=== PATIENT | female | born 1950 | race Two or more races ===

== ENCOUNTER 2023-06-04 03:36 | Inpatient (IN) | payer OTHER, MEDICAID ==
[~2023-06-04] VITALS: Ht 165.1 cm; Wt 92.1 kg
[2023-06-04] MEDS ORDERED: cloNIDine HCL 0.1 MG TAB PO ONE (06:45)
[2023-06-04 07:40] LABS: Chloride 102 mmol/L (98-107); Sodium 142 mmol/L (136-145)
[2023-06-04 07:41] LABS: Anion Gap 10 (5-15); Calcium 8.9 mg/dL (8.5-10.1); Carbon Dioxide 30 mmol/L (20-30)
[2023-06-04 07:46] LABS: Blood Urea Nitrogen 25 mg/dL (9-23); Glucose 148 mg/dL (74-106)
[2023-06-04 07:50] LABS: Basophils # (auto) 0 10 ^3/uL (0-0.2); Basophils % (auto) 0.3 % (0.0-2.0); Eosinophils # (auto) 0 10 ^3/uL (0-0.8); Hematocrit 41.7 % (36.0-46.0); Lymphocytes # (auto) 1.8 10 ^3/uL (0.4-5.4); Lymphocytes % (auto) 18.5 % (10.0-50.0); Mean Corpuscular Hemoglobin 31.1 pg (28.0-32.0); Mean Corpuscular Hgb Conc. 33.7 g/dL (32.0-36.0); Mean Corpuscular Volume 92.2 fL (80.0-100.0); Monocytes # (auto) 0.5 10 ^3/uL (0-1.3); Monocytes % (auto) 5.3 % (0.0-12.0); Neutrophils # (auto) 7.5 10 ^3/uL (1.6-8.6); Neutrophils % (auto) 75.9 % (37.0-80.0); Nucleated Red Blood Cells % 0.1 %; Red Blood Cells 4.52 10^6/uL (4.0-5.20); Red Cell Distribution Width 14.5 % (11.8-14.3); White Blood Cell 9.9 10^3/uL (4.4-10.8)
[2023-06-04] MEDS ORDERED: ENOXAPARIN SOD 100 MG/1 ML SYRINGE SC ONE (08:00)
[2023-06-04] MEDS ORDERED: NITROGLYCERIN 0.4 MG SL TAB SL ONE (08:00)
[2023-06-04] MEDS ORDERED: ASPirin 325 MG TAB PO ONE (08:00)
[2023-06-04 08:15] VITALS: RESP 17; O2SAT 95
[2023-06-04] MEDS ORDERED: SITA100T7 PO (08:57)
[2023-06-04] MEDS ORDERED: CHOL1CAP21 PO (08:57)
[2023-06-04] MEDS ORDERED: APIX5TAB PO (08:57)
[2023-06-04] MEDS ORDERED: TRAZ-228 PO (08:57)
[2023-06-04] MEDS ORDERED: OMEP1CAP70 PO (08:57)
[2023-06-04] MEDS ORDERED: ATOR40TA52 PO (08:57)
[2023-06-04] MEDS ORDERED: AMLO1TAB22 PO (08:57)
[2023-06-04] MEDS ORDERED: CALC0.25 PO (08:57)
[2023-06-04] MEDS ORDERED: LOSA50TA46 PO (08:57)
[2023-06-04] MEDS ORDERED: PHEN1CAP60 PO (08:57)
[2023-06-04] MEDS ORDERED: FERR325T20 PO (08:57)
[2023-06-04] MEDS ORDERED: ASPI-325 PO (08:57)
[2023-06-04] MEDS ORDERED: SOTA80TA PO (08:57)
[2023-06-04] MEDS ORDERED: MORPHINE SULFATE INJ 2 MG/ml SYRG IV PRN (09:00)
[2023-06-04] MEDS ORDERED: NITROGLYCERIN 0.4 MG SL TAB SL PRN (09:00)
[2023-06-04] MEDS ORDERED: ACETAMINOPHEN 325 MG TAB PO PRN (09:00)
[2023-06-04] MEDS ORDERED: DEXTROSE (50%) 50ML SYRG IV PRN (09:00)
[2023-06-04] MEDS ORDERED: ERGOCALCIFEROL 50,000 UNIT(1.25MG) CAP PO SCH (09:15)
[2023-06-04 09:24] LABS: Triglycerides 168 mg/dL (< 150)
[2023-06-04 09:25] LABS: LDL Cholesterol 72 mg/dL (< 100)
[2023-06-04 09:26] LABS: Cholesterol 157 mg/dL (< 200); HDL Cholesterol 51 mg/dL (40-59)
[2023-06-04] MEDS: ASPirin 81 mg TAB PO SCH (09:59)
[2023-06-04] MEDS: ENOXAPARIN SOD 100 MG/1 ML SYRINGE SC SCH ×2 (10:00→22:41)
[2023-06-04] MEDS ORDERED: APIXABAN 5 MG TAB PO SCH (10:00)
[2023-06-04] MEDS ORDERED: OMEPRAZOLE 40MG/20ML ORAL SUSP PO SCH (10:00)
[2023-06-04] MEDS: LOSARTAN POTASSIUM 50 MG TAB PO SCH (10:11)
[2023-06-04] MEDS: CALCITRIOL 0.25 MCG CAP PO SCH (10:12)
[2023-06-04] MEDS: amLODIPine BESYLATE 5 MG TAB PO SCH (10:12)
[2023-06-04] MEDS: SOTALOL HCL 80 MG TAB PO SCH (10:14)
[2023-06-04] MEDS: PANTOPRAZOLE 40 MG TAB PO SCH (10:36)
[2023-06-04] MEDS: ACCU-CHEK COMFORT CURVE STRIP VI SCH ×3 (12:00→22:42)
[2023-06-04] MEDS: InsuLIN REG 1unit/0.01ml Soln (100units/ml) SC SCH ×3 (12:00→22:41)
[2023-06-04] MEDS: PHENYTOIN SODIUM 100 MG CAP PO SCH ×2 (14:18→22:37)
[2023-06-04 19:30] VITALS: PULSE 60; RESP 14; O2SAT 96
[2023-06-04] MEDS: ATORVASTATIN 20 MG TAB PO SCH (22:38)
[2023-06-04] MEDS: hydrALAZINE HCL 20 MG/ML VL IV PRN (22:39)
[2023-06-04 23:45] VITALS: BP 174/69; PULSE 80; RESP 19; TEMP 98.5; O2SAT 94
[2023-06-05] VITALS (9 sets, daily range): BP systolic 130–171; BP diastolic 56–83; PULSE 74–84; RESP 17–19; TEMP 97.6–98.8; O2SAT 92–97
[2023-06-05] MEDS ORDERED: POTA10TA51 PO (05:12)
[2023-06-05] MEDS ORDERED: BUSP10TA90 PO (05:13)
[2023-06-05] MEDS ORDERED: RIVA20TA PO (05:14)
[2023-06-05] MEDS ORDERED: FLUO-125 PO (05:18)
[2023-06-05] MEDS ORDERED: NIFE1TAB30 PO (05:20)
[2023-06-05] MEDS: PHENYTOIN SODIUM 100 MG CAP PO SCH ×3 (06:10→21:15)
[2023-06-05] MEDS: InsuLIN REG 1unit/0.01ml Soln (100units/ml) SC SCH ×4 (06:11→21:21)
[2023-06-05 06:18] LABS: Basophils # (auto) 0 10 ^3/uL (0-0.2); Basophils % (auto) 0.3 % (0.0-2.0); Eosinophils # (auto) 0 10 ^3/uL (0-0.8); Eosinophils % (auto) 0.1 % (0.0-7.0); Hematocrit 37.1 % (36.0-46.0); Hemoglobin 12.6 g/dL (12.2-16.2); Lymphocytes # (auto) 2.1 10 ^3/uL (0.4-5.4); Lymphocytes % (auto) 25.9 % (10.0-50.0); Mean Corpuscular Hemoglobin 31.5 pg (28.0-32.0); Mean Corpuscular Hgb Conc. 33.8 g/dL (32.0-36.0); Monocytes # (auto) 0.5 10 ^3/uL (0-1.3); Monocytes % (auto) 6.2 % (0.0-12.0); Neutrophils # (auto) 5.5 10 ^3/uL (1.6-8.6); Neutrophils % (auto) 67.5 % (37.0-80.0); Nucleated Red Blood Cells % 0.1 %; Red Blood Cells 3.99 10^6/uL (4.0-5.20); White Blood Cell 8.1 10^3/uL (4.4-10.8)
[2023-06-05] MEDS: ACCU-CHEK COMFORT CURVE STRIP VI SCH ×4 (06:23→21:15)
[2023-06-05 06:31] LABS: Alanine Aminotransferase 15 U/L (7-40); Albumin 4.1 g/dL (3.2-4.8); Alkaline Phosphatase 116 U/L (46-116); Anion Gap 10 (5-15); Aspartate Aminotransferase 21 U/L (13-40); BUN/Creatinine Ratio 23.3 (10.0-20.0); Bilirubin, Total 0.3 mg/dL (0.2-1.0); Blood Urea Nitrogen 21 mg/dL (9-23); Carbon Dioxide 27 mmol/L (20-30); Chloride 103 mmol/L (98-107); Glucose 139 mg/dL (74-106); Potassium 3.3 mmol/L (3.5-5.1); Sodium 140 mmol/L (136-145); Total Protein 6.9 g/dL (5.7-8.2)
[2023-06-05] MEDS: CALCITRIOL 0.25 MCG CAP PO SCH (09:06)
[2023-06-05] MEDS: LOSARTAN POTASSIUM 50 MG TAB PO SCH (09:06)
[2023-06-05] MEDS: PANTOPRAZOLE 40 MG TAB PO SCH (09:06)
[2023-06-05] MEDS: ASPirin 81 mg TAB PO SCH (09:06)
[2023-06-05] MEDS: ENOXAPARIN SOD 100 MG/1 ML SYRINGE SC SCH ×2 (09:07→21:15)
[2023-06-05] MEDS: amLODIPine BESYLATE 5 MG TAB PO SCH (09:07)
[2023-06-05] MEDS: SOTALOL HCL 80 MG TAB PO SCH (09:08)
[2023-06-05] MEDS: hydrALAZINE HCL 20 MG/ML VL IV PRN ×2 (14:20→22:20)
[2023-06-05] MEDS: ATORVASTATIN 20 MG TAB PO SCH (21:15)
[2023-06-06] VITALS (8 sets, daily range): BP systolic 106–169; BP diastolic 47–78; PULSE 60–94; RESP 16–20; TEMP 98.4–98.8; O2SAT 91–96
[2023-06-06] MEDS: PHENYTOIN SODIUM 100 MG CAP PO SCH ×3 (06:17→21:25)
[2023-06-06] MEDS: InsuLIN REG 1unit/0.01ml Soln (100units/ml) SC SCH ×4 (06:18→21:39)
[2023-06-06] MEDS: ACCU-CHEK COMFORT CURVE STRIP VI SCH ×4 (06:18→21:38)
[2023-06-06 08:47] LABS: Hepatitis B Surface Antigen Negative (Negative)
[2023-06-06 09:10] LABS: Hepatitis C Antibody Negative (Negative)
[2023-06-06] MEDS: ASPirin 81 mg TAB PO SCH (09:55)
[2023-06-06] MEDS: SOTALOL HCL 80 MG TAB PO SCH (09:55)
[2023-06-06] MEDS: amLODIPine BESYLATE 5 MG TAB PO SCH (09:56)
[2023-06-06] MEDS: ENOXAPARIN SOD 100 MG/1 ML SYRINGE SC SCH ×2 (09:56→21:39)
[2023-06-06] MEDS: CALCITRIOL 0.25 MCG CAP PO SCH (09:56)
[2023-06-06] MEDS: LOSARTAN POTASSIUM 50 MG TAB PO SCH (09:56)
[2023-06-06] MEDS: PANTOPRAZOLE 40 MG TAB PO SCH (09:56)
[2023-06-06] MEDS: hydrALAZINE HCL 20 MG/ML VL IV PRN (09:57)
[2023-06-06] MEDS ORDERED: cloNIDine HCL 0.1 MG TAB PO ONE (13:15)
[2023-06-06] MEDS: ATORVASTATIN 20 MG TAB PO SCH (21:22)
[2023-06-07] MEDS ORDERED: INFLUENZA QUAD 2023-2024 0.5 ML SYRG IM ONE (04:00)
[2023-06-07 05:00] VITALS: BP 138/51; PULSE 68; RESP 20; TEMP 98.1; O2SAT 93
[2023-06-07] MEDS: PHENYTOIN SODIUM 100 MG CAP PO SCH ×2 (06:08→14:47)
[2023-06-07] MEDS: ACCU-CHEK COMFORT CURVE STRIP VI SCH ×3 (06:08→16:35)
[2023-06-07] MEDS: InsuLIN REG 1unit/0.01ml Soln (100units/ml) SC SCH ×3 (06:10→17:00)
[2023-06-07 08:00] VITALS: PULSE 76; RESP 16; O2SAT 94
[2023-06-07 09:00] VITALS: BP 156/65; PULSE 73; RESP 17; TEMP 98.4; O2SAT 94
[2023-06-07] MEDS: ENOXAPARIN SOD 100 MG/1 ML SYRINGE SC SCH (09:32)
[2023-06-07] MEDS: amLODIPine BESYLATE 5 MG TAB PO SCH (09:35)
[2023-06-07] MEDS: ASPirin 81 mg TAB PO SCH (09:35)
[2023-06-07] MEDS: LOSARTAN POTASSIUM 50 MG TAB PO SCH (09:36)
[2023-06-07] MEDS: PANTOPRAZOLE 40 MG TAB PO SCH (09:36)
[2023-06-07] MEDS: SOTALOL HCL 80 MG TAB PO SCH (09:36)
[2023-06-07] MEDS: CALCITRIOL 0.25 MCG CAP PO SCH (09:36)
[2023-06-07] MEDS ORDERED: ACET-1882 PO (09:43)
[2023-06-07] MEDS ORDERED: LOSA50TA46 PO (11:36)
[2023-06-07] MEDS ORDERED: AMLO1TAB23 PO (11:36)
[2023-06-07] MEDS ORDERED: NIFE1TAB30 PO (11:36)
[2023-06-07 13:00] VITALS: BP 169/68; PULSE 56; RESP 16; TEMP 98.5; O2SAT 97
[2023-06-07 14:09] VITALS: TEMP 98.5
[2023-06-07] MEDS ORDERED: APIX5TAB PO (14:29)
[2023-06-07 17:00] VITALS: BP 168/66; PULSE 59; RESP 20; TEMP 98.1; O2SAT 96
[2023-06-07] MEDS ORDERED: hydrALAZINE HCL 10 MG TAB PO ONE (17:30)
== END 2023-06-07 17:00 | disposition home or self-care (01) | DRG 282 ==
LOC: ER 03:36 → TELE 08:53 → TELE-WESTW 23:45
PROVIDERS: ADMIT Nurse Practitioner Family; ATTEND Family Medicine
DX: I16.1 Hypertensive emergency (principal); I21.A1 Myocardial infarction type 2; F32.A Depression, unspecified; E78.00 Pure hypercholesterolemia, unspecified; E66.01 Morbid (severe) obesity due to excess calories; I10 Essential (primary) hypertension; I25.2 Old myocardial infarction; Z68.33 Body mass index [BMI] 33.0-33.9, adult; R56.9 Unspecified convulsions; Z86.718 Personal history of other venous thrombosis and embolism; E11.65 Type 2 diabetes mellitus with hyperglycemia
CPT/HCPCS: 36415; 80048; 80053; 80061; 80185; 82962; 83036; 84443; 84484; 85025; 86803; 87340; 93306; 96372; G0378; J1815

== ENCOUNTER 2024-07-05 18:58 | Emergency (ER) | payer OTHER, MEDICAID ==
[~2024-07-05] VITALS: Ht 165.1 cm; Wt 73.1 kg
[~2024-07-05 18:58] MED LIST: ACET-1882 PO; AMLO1TAB22 PO; AMLO1TAB23 PO; APIX5TAB PO; ASPI-325 PO; ATOR40TA52 PO; BUSP10TA90 PO; CALC0.25 PO; CHOL1CAP21 PO; FERR325T20 PO; FLUO-125 PO; LOSA-534 PO; NIFE1TAB30 PO; OMEP1CAP70 PO; PHEN1CAP38 PO; POTA-36 PO; RIVA20TA PO; SITA100T7 PO; SOTA80TA PO; TRAZ-228 PO
--- NOTE | 2024-07-05 19:23 | DVH ---
CLINICAL INDICATION: FIRST DIGIT INJURY/PX TECHNIQUE: 3 radiographic views of the right foot were obtained. Comparison: None FINDINGS/IMPRESSION: There is no evidence of acute fracture or dislocation. Plantar calcaneal enthesophyte. The visualized joint space is well maintained. The alignment is anatomical. There is no radiopaque foreign body. HS:Y
[2024-07-05 19:30] VITALS: BP 167/55; PULSE 56; RESP 18; TEMP 98.7; O2SAT 94
[2024-07-05] MEDS ORDERED: CEPH500C PO (20:41)
--- NOTE | 2024-07-05 20:42 | ED.PDOC ---
Back pain HPI HPI Comments THIS IS A 73-YEAR-OLD DIABETIC FEMALE PRESENTS TO THE ED WITH RIGHT GREAT TOE INJURY. PT STATES 4 DAYS AGO SHE DROPPED A FROZEN PEICE OF MEAT ON HER RIGHT GREAT TOE, HAS A 1 CM BLOOD BLISTER ON THE TIP OF THE TOE, PT DENIES PAIN, NUMBNESS AND WEAKNESS Chief Complaint: Lower Extremity Time Seen by MD: 19:08 Reviewed Notes: Nurses Notes, Medications, Allergies Allergies: Coded Allergies: Niacin (Verified Allergy, Unknown, 06/04/23) Home Meds Active Scripts Cephalexin Monohydrate (Cephalexin) 500 Mg Cap, 1 CAP PO TID for 3 Days, #9 CAP Prov:NOAHKEN BEE TENDER 07/05/24 Apixaban Base (ELIQUIS) 5 Mg Tab, 5 MG PO BID, #180 TAB Prov:KELLY DUNCAN MD 06/07/23 Amlodipine Besylate (Amlodipine Besylate) 10 Mg Tab, 1 TAB PO DAILY, #90 TAB 1 Refill Prov:KELLY DUNCAN MD 06/07/23 Losartan Potassium (Losartan Potassium) 50 Mg Tab, 1 TAB PO DAILY, #90 TAB 1 Refill Prov:KELLY DUNCAN MD 06/07/23 Nifedipine (Nifedipine Er) 60 Mg Tab, 1 TAB PO DAILY, #90 TAB 1 Refill Prov:KELLY DUNCAN MD 06/07/23 Reported Medications Acetaminophen (Acetaminophen) 325 Mg Tab, 2 TAB PO TID PRN for PAIN SCALE 1 THRU 6 06/07/23 Nifedipine (Nifedipine Er) 60 Mg Tab, 60 MG PO, TAB 06/05/23 Fluoxetine Hcl (Fluoxetine Hcl) 20 Mg Cap, 20 MG PO DAILY for 30 Days, MG 06/05/23 Rivaroxaban (XARELTO) 20 Mg Tab, 20 MG PO, TAB 06/05/23 Buspirone Hcl (Buspirone Hcl) 10 Mg Tab, 10 MG PO Q12HR for 30 Days, MG 06/05/23 Potassium Chloride (POTASSIUM CHLORIDE CR) 10 Meq Tb, 10 MEQ PO, TAB 06/05/23 Losartan Potassium (Losartan Potassium) 50 Mg Tab, 1 TAB PO DAILY 06/04/23 Ferrous Sulfate (Ferosul) 325 Mg Tab, 2 TAB PO 06/04/23 Trazodone Hcl (Trazodone Hcl) 100 Mg Tab, 1 TAB PO 06/04/23 Atorvastatin Calcium (ATORVASTATIN CALCIUM) 40 Mg Tab, 1 TAB PO DAILY 06/04/23 Omeprazole (Omeprazole Dr) 20 Mg Cap, 1 CAP PO DAILY 06/04/23 Amlodipine Besylate (Amlodipine Besylate) 5 Mg Tab, 1 TAB PO DAILY 06/04/23 Sotalol Hcl (Sotalol Hcl) 80 Mg Tab, TAB PO 06/04/23 Sitagliptin Phosphate (Januvia) 100 Mg Tab, 1 TAB PO DAILY 06/04/23 Cholecalciferol (Vitamin D3) 50,000 Unit Cap, 1 CAP PO QWEEKLY 06/04/23 Apixaban Base (ELIQUIS) 5 Mg Tab, 1 TAB PO BID 06/04/23 Phenytoin Sodium (DILANTIN CAPSULE) 100 Mg Cp, 3 CAP PO 06/04/23 Aspirin (Aspirin Low Dose) 81 Mg Tab, 1 TAB PO DAILY 06/04/23 Calcitriol (Calcitriol) 0.25 Mcg Cap, 0.25 CAP PO 06/04/23 Mode of Arrival: Ambulatory Past Medical History PAST MEDICAL HISTORY: DM, HTN Surgical History: Denies all surgeries 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 AND 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 History: Denies all DRAPERY AND UPHOLSTERY MEASURER Hx Family History Family History: Reviewed,noncontributory to illness Social History Smoker: Non-Smoker Alcohol: Denies ETOH Use Drugs: Denies Drug Use Lives In: Home Constitutional: denies: chills, diaphoresis, fatigue, fever, malaise, sweats, weakness, others EENTM: denies: blurred vision, double vision, ear bleeding, ear discharge, ear drainage, ear pain, ear ringing, eye pain, eye redness, hearing loss, mouth pain, mouth swelling, nasal discharge, nose bleeding, nose congestion, nose pain, photophobia, tearing, throat pain, throat swelling, voice changes, others Cardiovascular: denies: chest pain, dizzy spells, diaphoresis, Dyspnea on exertion, edema, irregular heart beat, left arm pain, lightheadedness, palpitations, PND, syncope, others Gastrointestinal: denies: abdomen distended, abdominal pain, blood streaked bowels, constipated, diarrhea, dysphagia, difficulty swallowing, hematemesis, melena, nausea, poor appetite, poor fluid intake, rectal bleeding, rectal pain, vomiting, others Genitourinary: denies: abnormal vagina bleeding, burning, dyspareunia, dysuria, flank pain, frequency, hematuria, incontinence, pain, , vagina discharge, urgency, others Neurological: denies: dizziness, fainting, headache, left sided numbness, left sided weakness, numbness, paresthesia, pre-existing deficit, right sided numbness, right sided weakness, seizure, speech problems, tingling, tremors, weakness, others Musculoskeletal: reports: others (RIGHT GREAT TOE BLOOD BLISTER); denies: back pain, gout, joint pain, joint swelling, muscle pain, muscle stiffness, neck pain Integumetry: denies: bruises, change in color, change in hair/nails, dryness, laceration, lesions, lumps, rash, wounds, others Allergic/Immunocompromised: denies: Difficulty Healing, Frequent Infections, Hives, Itching, others Hematologic/Lymphatic: denies: anemia, blood clots, easy bleeding, easy bruising, swollen glands, others Endocrine: denies: excessive hunger, excessive sweating, excessive thirst, excessive urination, flushing, intolerance to cold, intolerance to heat, unexplained weight gain, unexplained weight loss, others Psychiatric: denies: anxiety, bipolar disorder, depression, hopeless, panic disorder, schizophrenia, sleepless, suicidal, others Physical Exam General Appearance: No Apparent Distress, Normal HEENT: Pharynx Normal Neck: Full Range of Motion, Non-Tender Respiratory: Lungs Clear, No Respiratory Distress, Normal Breath Sounds Cardiovascular: No Edema, No JVD, No Murmur, No Gallop, Normal Peripheral Pulses, Regular Rate/Rhythm Breast Exam: Deferred Gastrointestinal: No Organomegaly, Non Tender, No Pulsatile Mass, Normal Bowel Sounds, Soft Genitalia: Deferred Pelvic: Deferred Rectal: Deferred Extremities: Normal capillary refill, Normal inspection, Normal range of motion, Non-tender, No pedal edema Musculoskeletal : Location: Right Extremity Location: Great Toe (INTACT BLOOD BLISTER DISTAL PHALANX RIGHT GREAT TOE. TRACE ECCHYMOSIS, NO ERYTHEMA OR STREAKING OR DRAINAGE.) Apperance: Normal Neurologic: Alert, muffler hand II-XII nml as Tested, No Motor Deficits, Normal Affect, Normal Mood, No Sensory Deficits Cerebellar Function: Normal Reflexes: Normal Skin: Dry, Normal Color, Warm Lymphatic: No Adenopathy Was a procedure done? Was a procedure done?: No Back Pain Differential Dx Differential Diagnosis: Fracture X-Ray, Labs, Meds, VS Vital Signs Date Time Temp Pulse Resp B/P (MAP) Pulse Ox O2 Delivery O2 Flow Rate FiO2 07/05/24 19:30 98.7 56 18 167/55 (92) 94 07/05/24 19:30 Room Air 07/05/24 19:30 98.7 56 18 167/55 (92) 94 98.7 X-Ray, Labs, Meds, VS Comment RIGHT GREAT TOE FOOT X-RAY NEGATIVE FOR ACUTE FINDINGS OR OSSEOUS LESIONS. SCRIPT PROPHYLACTIC ANTIBIOTICS PATIENT WAS DIABETIC ADVISED NOT TO POP BLISTER. FOLLOW-UP WITH PCP IN 1 TO 2 DAYS. TAKE MEDICATIONS PRESCRIBED. RETURN TO ED FOR ANY NEW OR WORSENING SYMPTOMS. Time of 1ST Reevaluation: 20:39 Reevaluation 1ST: Improved Patient Education/Counseling: Diagnosis, Treatment, Prognosis, Need For Follow Up Family Education/Counseling: No Family Present Departure 1 Departure Time of Disposition: 20:39 Impression: Primary Impression: Contusion of right great toe without damage to nail, initial encounter Additional Impression: Blood blister Disposition: 01 HOME / SELF CARE / HOMELESS Condition: Stable e-Prescriptions Cephalexin Monohydrate (Cephalexin) 500 Mg Cap 1 CAP PO TID for 3 Days, #9 CAP Prov: KEN ZAMORA 07/05/24 Discharged With: Relative, Spouse (DAUGHTER) Critical Care Note Critical Care Time?: No Stability Stability form required: KEN Curran Jul 05, 2024 20:42
== END 2024-07-05 20:50 | disposition home or self-care (01) ==
LOC: ER 18:58
DX: S90.111A Contusion of right great toe without damage to nail, initial encounter (principal); S90.421A Blister (nonthermal), right great toe, initial encounter; E11.9 Type 2 diabetes mellitus without complications; I10 Essential (primary) hypertension; Z88.8 Allergy status to other drugs, medicaments and biological substances; X58.XXXA Exposure to other specified factors, initial encounter; Y93.89 Activity, other specified; Y92.89 Other specified places as the place of occurrence of the external cause; Y99.8 Other external cause status
CPT/HCPCS: 73630

== ENCOUNTER 2024-10-11 20:00 | Emergency (ER) | payer OTHER, MEDICAID ==
[~2024-10-11] VITALS: Ht 165.1 cm; Wt 73.3 kg
--- NOTE | 2024-10-11 21:15 | ED.PDOC ---
Musculoskeletal HPI Comments 74-year-old female came to ER for lower extremity pain. Patient has history of hypertension, diabetes, dyslipidemia, DVT of the left leg, currently on Eliquis. Patient states for the past 5 days, she has been having right knee pain radiating to her right hip. Complaining of pain on her right upper leg. Denies any shortness of breath or chest pain. Denies any fever. Denies any recent trauma to the leg. Chief Complaint: Lower extremity Time Seen by MD: 21:14 Reviewed Notes: Nurses Notes Allergies: Coded Allergies: Niacin (Verified Allergy, Unknown, 06/04/23) Home Meds Active Scripts Gabapentin (Once-Daily) (Gabapentin) 300 Mg Tab, 300 MG PO Q6HP PRN, #60 TAB Prov:ANNMARIE TEJEDA MD 10/12/24 Gabapentin (Once-Daily) (Gabapentin) 300 Mg Tab, 300 MG PO Q6HP PRN, #60 TAB Prov:ANNMARIE TEJEDA MD 10/11/24 Apixaban Base (ELIQUIS) 5 Mg Tab, 5 MG PO BID, #180 TAB Prov:EKLLY DUNCAN MD 06/07/23 Amlodipine Besylate (Amlodipine Besylate) 10 Mg Tab, 1 TAB PO DAILY, #90 TAB 1 Refill Prov:KELLY DUNCAN MD 06/07/23 Losartan Potassium (Losartan Potassium) 50 Mg Tab, 1 TAB PO DAILY, #90 TAB 1 Refill Prov:KELLY DUNCAN MD 06/07/23 Nifedipine (Nifedipine Er) 60 Mg Tab, 1 TAB PO DAILY, #90 TAB 1 Refill Prov:KELLY DUNCAN MD 06/07/23 Reported Medications Acetaminophen (Acetaminophen) 325 Mg Tab, 2 TAB PO TID PRN for PAIN SCALE 1 THRU 6 06/07/23 Nifedipine (Nifedipine Er) 60 Mg Tab, 60 MG PO, TAB 06/05/23 Fluoxetine Hcl (Fluoxetine Hcl) 20 Mg Cap, 20 MG PO DAILY for 30 Days, MG 06/05/23 Rivaroxaban (XARELTO) 20 Mg Tab, 20 MG PO, TAB 06/05/23 Buspirone Hcl (Buspirone Hcl) 10 Mg Tab, 10 MG PO Q12HR for 30 Days, MG 06/05/23 Potassium Chloride (POTASSIUM CHLORIDE CR) 10 Meq Tb, 10 MEQ PO, TAB 06/05/23 Losartan Potassium (Losartan Potassium) 50 Mg Tab, 1 TAB PO DAILY 06/04/23 Ferrous Sulfate (Ferosul) 325 Mg Tab, 2 TAB PO 06/04/23 Trazodone Hcl (Trazodone Hcl) 100 Mg Tab, 1 TAB PO 06/04/23 Atorvastatin Calcium (ATORVASTATIN CALCIUM) 40 Mg Tab, 1 TAB PO DAILY 06/04/23 Omeprazole (Omeprazole Dr) 20 Mg Cap, 1 CAP PO DAILY 06/04/23 Amlodipine Besylate (Amlodipine Besylate) 5 Mg Tab, 1 TAB PO DAILY 06/04/23 Sotalol Hcl (Sotalol Hcl) 80 Mg Tab, TAB PO 06/04/23 Sitagliptin Phosphate (Januvia) 100 Mg Tab, 1 TAB PO DAILY 06/04/23 Cholecalciferol (Vitamin D3) 50,000 Unit Cap, 1 CAP PO QWEEKLY 06/04/23 Apixaban Base (ELIQUIS) 5 Mg Tab, 1 TAB PO BID 06/04/23 Phenytoin Sodium (DILANTIN CAPSULE) 100 Mg Cp, 3 CAP PO 06/04/23 Aspirin (Aspirin Low Dose) 81 Mg Tab, 1 TAB PO DAILY 06/04/23 Calcitriol (Calcitriol) 0.25 Mcg Cap, 0.25 CAP PO 06/04/23 Information Source: Patient Mode of Arrival: Wheelchair Location: Right Extremity Location: Hip, Knee, Leg Timing: Days Prehospital treatment: None Severity: Moderate Able to Move Extremity: Yes Bear Weight: Limited Pain: Moderate Hand Dominance: Right Mechanism: Spontaneous Circumstances: Spontaneous Onset of Symptoms: Spontaneous Symptoms: Swelling, Pain Associated signs and symptoms: Knee pain, Leg pain, Hip pain Past Medical History PAST MEDICAL HISTORY: DM, High Lipids, HTN Past Medical History (Other): DVT left leg Surgical History: Denies all surgeries ASSOCIATE PRODUCT MANAGER History: Denies all ASSOCIATE PRODUCT MANAGER Hx Family History Family History: Reviewed,noncontributory to illness Social History Smoker: Non-Smoker Alcohol: Denies ETOH Use Drugs: Denies Drug Use Lives In: Home Constitutional: denies: chills, diaphoresis, fatigue, fever, malaise, sweats, weakness, others EENTM: denies: blurred vision, double vision, ear bleeding, ear discharge, ear drainage, ear pain, ear ringing, eye pain, eye redness, hearing loss, mouth pain, mouth swelling, nasal discharge, nose bleeding, nose congestion, nose pain, photophobia, tearing, throat pain, throat swelling, voice changes, others Respiratory: denies: cough, hemoptysis, orthopnea, SOB at rest, shortness of breath, SOB with excertion, stridor, wheezing, others Cardiovascular: denies: chest pain, dizzy spells, diaphoresis, Dyspnea on exertion, edema, irregular heart beat, left arm pain, lightheadedness, palpitations, PND, syncope, others Gastrointestinal: denies: abdomen distended, abdominal pain, blood streaked bowels, constipated, diarrhea, dysphagia, difficulty swallowing, hematemesis, melena, nausea, poor appetite, poor fluid intake, rectal bleeding, rectal pain, vomiting, others Genitourinary: denies: abnormal vagina bleeding, burning, dyspareunia, dysuria, flank pain, frequency, hematuria, incontinence, pain, , vagina discharge, urgency, others Neurological: denies: dizziness, fainting, headache, left sided numbness, left sided weakness, numbness, paresthesia, pre-existing deficit, right sided numbness, right sided weakness, seizure, speech problems, tingling, tremors, weakness, others Musculoskeletal: reports: joint pain (Right knee, right hip ), muscle pain (Right upper leg); denies: back pain, gout, joint swelling, muscle stiffness, neck pain, others Integumetry: denies: bruises, change in color, change in hair/nails, dryness, laceration, lesions, lumps, rash, wounds, others Allergic/Immunocompromised: denies: Difficulty Healing, Frequent Infections, Hi ves, Itching, others Hematologic/Lymphatic: denies: anemia, blood clots, easy bleeding, easy bruising, swollen glands, others Endocrine: denies: excessive hunger, excessive sweating, excessive thirst, excessive urination, flushing, intolerance to cold, intolerance to heat, unexplained weight gain, unexplained weight loss, others Psychiatric: denies: anxiety, bipolar disorder, depression, hopeless, panic disorder, schizophrenia, sleepless, suicidal, others Physical Exam General Appearance: No Apparent Distress, Normal HEENT: Normal ENT Inspection, Pharynx Normal, TMs Normal Neck: Full Range of Motion, Non-Tender, Normal, Normal Inspection Respiratory: Chest Non-Tender, Lungs Clear, No Accessory Muscle Use, No Respiratory Distress, Normal Breath Sounds Cardiovascular: No Edema, No JVD, No Murmur, No Gallop, Normal Peripheral P ulses, Regular Rate/Rhythm Breast Exam: Deferred Gastrointestinal: No Organomegaly, Non Tender, No Pulsatile Mass, Normal Bowel Sounds, Soft Genitalia: Deferred Pelvic: Deferred Rectal: Deferred Extremities: No calf tenderness, Normal capillary refill, Normal inspection, Normal range of motion, Non-tender, No pedal edema Musculoskeletal : Apperance: Normal Neurologic: Alert, journeyman 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 Was a procedure done?: No Differential Diagnosis EXT Differential Diagnosis: CHF, Deep Vein Thrombosis, Arthritis, Bursitis X-Ray, Labs, Meds, VS Vital Signs Date Time Temp Pulse Resp B/P (MAP) Pulse Ox O2 Delivery O2 Flow Rate FiO2 10/12/24 01:30 98.2 46 16 162/76 (104) 92 98.2 10/12/24 01:30 46 16 92 Room Air* 0 21 10/11/24 21:32 98.1 51 20 174/83 (113) 96 98.1 Current Medications Medications (Trade) Dose Ordered Sig/Aaliyah Route Start Time Stop Time Status Last Admin Acetaminophen/ Hydrocodone Bitart ([place] 10/325MG Tab) 1 tab ONCE ONCE PO 10/11/24 23:15 10/11/24 23:16 DC 10/12/24 01:39 PROCEDURE(s): RKNE2 - R KNEE 2V XRAY CLINICAL INDICATION: pain TECHNIQUE: XY R KNEE 2V XRAY Comparison: None FINDINGS: No evidence of joint effusion, fracture or dislocation. Joint spaces are with normal limits. Arterial calcifications noted. IMPRESSION: No evidence of fracture or dislocation. Time of 1ST Reevaluation: 21:11 Reevaluation 1ST: Unchanged Patient Education/Counseling: Diagnosis, Treatment Family Education/Counseling: Diagnosis, Treatment Departure 1 Departure Time of Disposition: 22:30 Impression: Primary Impression: Right knee pain Additional Impression: Right hip pain Disposition: HOME / SELF CARE / HOMELESS Condition: Stable e-Prescriptions Gabapentin (Once-Daily) (Gabapentin) 300 Mg Tab 300 MG PO Q6HP PRN, #60 TAB Prov: ANNMARIE TEJEDA MD 10/12/24 Gabapentin (Once-Daily) (Gabapentin) 300 Mg Tab 300 MG PO Q6HP PRN, #60 TAB Prov: ANNMARIE TEJEDA MD 10/11/24 Discharged With: Self, Relative Critical Care Note Critical Care Time?: No Stability Stability form required: No Heart Score Heart Score: Heart Score Response (Comments) Value History N/A 0 EKG N/A 0 Age N/A 0 Risk Factors N/A 0 Troponin N/A 0 Total 0 I personally scribed for ANNMARIE TEJEDA MD ([email or web address]) on 10/11/24 at 21:15. Electronically submitted by Carson Bruner ([employer]). I personally scribed for ANNMARIE TEJEDA MD ([email or web address]) on 10/11/24 at 22:18. Electronically submitted by Carson Bruner ([email or web address]). ANNMARIE TEJEDA MD October 11, 2024 21:15
--- NOTE | 2024-10-11 22:05 | DVH ---
CLINICAL INDICATION: pain TECHNIQUE: XY R KNEE 2V XRAY Comparison: None FINDINGS: No evidence of joint effusion, fracture or dislocation. Joint spaces are with normal limits. Arterial calcifications noted. IMPRESSION: No evidence of fracture or dislocation.
--- NOTE | 2024-10-11 22:35 | DVH ---
Right lower extremity venous duplex Clinical History: right leg pain Comparison: None Technique: Duplex Doppler evaluation of the deep venous system of the right lower extremity from the common femo ral vein to the popliteal vein including color Doppler and spectral/pulsed waveform analysis was perf ormed. Findings: The common femoral vein demonstrates appropriate compressibility and waveform variability. There is compressibility/patency of the great saphenous vein at the proximal thigh. The femoral vein demonstrates appropriate compressibility and waveform variability. The deep femoral vein demonstrates appropriate compressibility and waveform variability. The popliteal vein demonstrates appropriate compressibility and waveform variability. There is normal compressibility at the tibioperoneal trunk. Impression: No evidence of right femoropopliteal venous thrombosis.
--- NOTE | 2024-10-11 22:53 | DVH ---
CLINICAL INDICATION: pain TECHNIQUE: XY R HIP COMPLETE XRAY Comparison: None FINDINGS / IMPRESSION: No evidence of acute fracture or dislocation. Right hip joint space is preserved.
[2024-10-11] MEDS ORDERED: GABA300T4 PO (23:05)
[2024-10-12 01:30] VITALS: BP 162/76; PULSE 46; RESP 16; TEMP 98.2; O2SAT 92
[2024-10-12] MEDS: HYDROcodone-ACET 10/325MG TAB PO ONE (01:39)
[2024-10-12] MEDS ORDERED: GABA-1250 PO (19:04)
== END 2024-10-12 01:47 | disposition home or self-care (01) ==
LOC: ER 20:00
DX: M25.561 Pain in right knee (principal); M25.551 Pain in right hip; E11.9 Type 2 diabetes mellitus without complications; E78.5 Hyperlipidemia, unspecified; I10 Essential (primary) hypertension; Z86.718 Personal history of other venous thrombosis and embolism; Z79.899 Other long term (current) drug therapy
CPT/HCPCS: 73502; 73560; 93971